=== PATIENT | male | born 1950 ===

== ENCOUNTER 2017-01-27 14:30 | Outpatient (RCR) | payer OTHER | END 2017-02-08 | disposition home or self-care (01) | LOC: PTY 14:30 | DX: M54.31 Sciatica, right side (principal) | CPT/HCPCS: 97110; 97140; 97162; G0283 ==

== ENCOUNTER 2017-02-23 10:48 | Outpatient (RCR) | payer OTHER | END 2017-03-10 | disposition home or self-care (01) | LOC: PTY 10:48 | DX: M54.31 Sciatica, right side (principal) | CPT/HCPCS: 97110; 97140; G0283 ==